=== PATIENT | female | born 1990 | race African-American/Black ===

== ENCOUNTER 2023-06-12 09:20 | Emergency (ER) | payer MEDICAID ==
[~2023-06-12] VITALS: Ht 165.1 cm; Wt 62.2 kg
[2023-06-12 09:20] VITALS: TEMP 98
[2023-06-12 10:03] LABS: BASOPHILS # (AUTO) 0.1 X10'3 (0-0.2); BASOPHILS % (AUTO) 0.5 % (0-1); EOSINOPHILS # (AUTO) 0.1 X10'3 (0-0.9); EOSINOPHILS % (AUTO) 0.6 % (0-6); HEMATOCRIT 35.2 % (35.0-45.0); LYMPHOCYTES # (AUTO) 0.8 X10'3 (1.1-4.8); LYMPHOCYTES % (AUTO) 7.4 % (21-51); MEAN CORPUSCULAR HGB CONC 31.2 g/dL (33.0-36.5); MEAN CORPUSCULAR VOLUME 80.1 FL (78-98); MEAN PLATELET VOLUME 7.7 FL (7.4-10.4); MONOCYTES # (AUTO) 1.3 X10'3 (0-0.9); MONOCYTES % (AUTO) 11.6 % (2-12); NEUTROPHILS # (AUTO) 8.7 X10'3 (1.8-7.7); NEUTROPHILS % (AUTO) 79.9 % (42-75); PLATELET COUNT 368 X10'3 (140-440); RED BLOOD COUNT 4.39 X10'6 (4.20-5.60); RED CELL DISTRIBUTION WIDTH 20.1 % (11.5-14.5); WHITE BLOOD COUNT 10.9 X10'3 (4.5-11.0)
[2023-06-12 10:05] LABS: BILIRUBIN,URINE NEGATIVE (Neg); CLARITY,URINE SLIGHTLY CLOUDY (Clear); COLOR,URINE YELLOW (Yellow); GLUCOSE, URINE NEGATIVE (Neg); KETONES,URINE NEGATIVE (Neg); LEUKOCYTE ESTERASE ,URINE NEGATIVE (Neg); NITRITES, URINE NEGATIVE (Neg); OCCULT BLOOD,URINE TRACE-INTACT (Neg); PH,URINE 5.5 (4.8-8.0); PROTEIN,URINE NEGATIVE (Neg); UROBILINOGEN,URINE 0.2 E.U/dL (0.2-1.0)
[2023-06-12 10:06] LABS: UA COLLECTION TYPE CLN CATCH MIDSTREAM; URINE HCG NEGATIVE (NEG)
[2023-06-12 10:11] LABS: MUCUS STRANDS MANY /LPF (Neg); SQUAMOUS EPITHELIAL CELL,UR MANY /LPF (FEW)
[2023-06-12 10:12] LABS: AMORPHOUS URATES 1+; BACTERIA,URINE FEW /HPF (Neg); RBC,URINE 0-2 /HPF (0-2); WBC,URINE 0-4 /HPF (0-4)
[2023-06-12 10:30] LABS: ALANINE AMINOTRANSFERASE 12 U/L (12-78); ALBUMIN/GLOBULIN RATIO 0.6 (1.1-1.5); ALKALINE PHOSPHATASE 81 IU/L (46-116); ANION GAP 7 (8-16); ASPARTATE AMINO TRANSFERASE 17 U/L (10-37); BILIRUBIN,TOTAL 0.2 MG/DL (0.1-1.0); BLOOD UREA NITROGEN 6 MG/DL (7-18); CALCIUM 8.7 MG/DL (8.5-10.1); CHLORIDE 103 MMOL/L (99-107); CREATININE 0.75 MG/DL (0.40-0.90); GLUCOSE 85 MG/DL (70-104); POTASSIUM 3.9 MMOL/L (3.5-5.1); SODIUM 135 MMOL/L (135-145); TOTAL CARBON DIOXIDE 24.6 MMOL/L (24-32); TOTAL PROTEIN 7.9 G/DL (6.4-8.2); eCRCL 96 ML/MIN; eGFR 89 ML/MIN
[2023-06-12 10:32] LABS: LIPASE 11 U/L (16-77)
[2023-06-12 10:40] LABS: ANISOCYTOSIS 3+; BILIRUBIN,DIRECT 0.1 MG/DL (0-0.3); C-REACTIVE PROTEIN 2.91 MG/DL (0.0-0.5); HYPOCHROMASIA 1+; PLATELET ESTIMATE NORMAL; POLYCHROMASIA 1+
[2023-06-12 10:41] LABS: STOMATOCYTES FEW
[2023-06-12] MEDS: famotidine 20mg tablet PO ONE (11:00)
[2023-06-12] MEDS: mag hydrox/Alum hydrox/simeth 30ml oral suspension PO ONE (11:01)
[2023-06-12] MEDS: LIDOcaine Viscous 15ml cup MM PRN (11:02)
[2023-06-12 11:09] VITALS: BP 129/50; PULSE 95; RESP 16; O2SAT 94
[2023-06-12] MEDS ORDERED: ONDA4TAB12 PO (11:17)
[2023-06-12] MEDS ORDERED: PANT-47 PO (11:17)
[2023-06-12] MEDS ORDERED: DOCU-148 PO (11:17)
[2023-06-12 13:22] LABS: OCCULT BLOOD STOOL NEGATIVE (Neg)
== END 2023-06-12 11:45 | disposition home or self-care (01) ==
LOC: ER 09:21
DX: K29.00 Acute gastritis without bleeding (principal); K60.2 Anal fissure, unspecified; R10.84 Generalized abdominal pain; Z88.5 Allergy status to narcotic agent; Z79.899 Other long term (current) drug therapy
CPT/HCPCS: 80048; 80076; 81001; 81025; 82272; 83605; 83690; 84145; 85008; 85025; 86140; 99284

== ENCOUNTER 2023-08-26 08:31 | Emergency (ER) | payer MEDICAID ==
[~2023-08-26] VITALS: Ht 165.1 cm; Wt 67.0 kg
[~2023-08-26 08:31] MED LIST: DOCU-148 PO; IBUP-1984 PO; ONDA4TAB12 PO; PANT-47 PO
[2023-08-26 08:48] VITALS: BP 131/80; PULSE 99; RESP 18; TEMP 97.8; O2SAT 98
== END 2023-08-26 13:03 | disposition left against medical advice (07) ==
LOC: ER 08:32
DX: M54.2 Cervicalgia (principal); Z53.21 Procedure and treatment not carried out due to patient leaving prior to being seen by health care provider

== ENCOUNTER 2023-08-29 15:51 | Emergency (ER) | payer MEDICAID ==
[~2023-08-29] VITALS: Ht 165.1 cm; Wt 63.6 kg
[2023-08-29 16:12] VITALS: BP 158/103; PULSE 91; TEMP 98; O2SAT 100
[2023-08-29] MEDS ORDERED: LIDOcaine 5% patch TP SCH (17:20)
[2023-08-29] MEDS ORDERED: TIZA4CAP PO (17:22)
[2023-08-29] MEDS ORDERED: LIDO700A47 TOP (17:22)
[2023-08-29] MEDS ORDERED: NAPR-56 PO (17:22)
[2023-08-29 17:41] VITALS: RESP 17
[2023-08-29] MEDS: ketorolac trometh. 30mg/ml inj. IM ONE (17:41)
[2023-08-29] MEDS: diazepam 5mg tablet PO ONE (17:43)
[2023-08-29] MEDS: predniSONE 20 mg tablet PO ONE (17:43)
[2023-08-29] MEDS: LIDOcaine 5% patch TP ONE (17:49)
== END 2023-08-29 17:56 | disposition home or self-care (01) ==
LOC: ER 15:52
DX: M54.2 Cervicalgia (principal); M25.512 Pain in left shoulder; Z88.5 Allergy status to narcotic agent; Z79.899 Other long term (current) drug therapy; Z79.1 Long term (current) use of non-steroidal anti-inflammatories (NSAID)
CPT/HCPCS: 96372; 99284; J1885; J7512

== ENCOUNTER 2024-10-17 17:23 | Emergency (ER) | payer MEDICAID ==
[~2024-10-17] VITALS: Ht 165.1 cm; Wt 75.0 kg
[~2024-10-17 17:23] MED LIST changes: -IBUP-1984 PO; +LIDO700A47 TOP; +ONDA-243 PO; -ONDA4TAB12 PO; +TIZA4CAP PO
[2024-10-17] MEDS ORDERED: DEXAMETHASONE 6 MG TABLET PO SCH (19:35)
[2024-10-17] MEDS: DEXAMETHASONE 6 MG TABLET PO ONE (20:06)
[2024-10-17] MEDS: ketorolac trometh 30MG/ML vial 30 MG/ML VIAL IM ONE (20:06)
[2024-10-17] MEDS ORDERED: AMOX-101 PO (20:37)
--- NOTE | 2024-10-17 20:37 | Physician Documentation ---
History of Present Illness ~ Chief Complaint: Back Pain Stated Complaint: BACK PAIN Time Seen by MD: 19:24 Primary Medical Doctor: [facility] HPI 34 year old female reports L buttock pain radiating down the back of her left leg, as well as L upper molar pain. Believes she has dental abscess. Denies injury, fever, N/V/D, cough, shortness of breath, neurologic deficits. Medication Reconciliation Allergies: Coded Allergies: codeine (Unverified Allergy, Unknown, 08/26/23) Scheduled Docusate Sodium (Colace), 1 CAP PO Q12H Lidocaine (Lidocaine), 1 PATCH TOP DAILY Pantoprazole Sodium (PROTONIX tablet), 1 TAB PO DAILY Tizanidine Hcl (Zanaflex), 1 CAP PO Q8H Scheduled PRN ONDANSETRON ODT 4mg tablet (Ondansetron Odt), 1 TAB PO Q6H PRN PRN for nausea/vomiting Past Medical History Past Medical History: No Pertinent History Past Surgical History: no surgical history Alcohol Use: Sober Drug Use: other Lives In: Homeless Past Social History: daily nicotine user Review of Systems All Other Systems at this time: Reviewed and Negative Physical Exam Physical Exam Vital Signs: RN Vital Signs have been reviewed: Yes, Temperature: 97.9, Source: Temporal, Heart Rate: 82, Respiratory Rate: 16, BP: 119/72, Pulse Oximetry: 100, Weight: 75.000 Oxygen Flow Rate: 0 Physical Exam HEENT: PERRL, moist oral mucosa, EOMI; poor dentition Pulmonary: No respiratory distress MSK: no deformity Skin: w/d/i, no rash Neuro: alert, nonfocal Psych: normal affect Progress Results/Orders Results/Orders Completed Orders - MARY LEE MD Ketorolac Trometh 30mg/Ml Vial (Toradol (10/17/24 19:35) Dexamethasone 6mg Tablet (Dexamethasone (10/17/24 19:35) Dexamethasone 6mg Tablet (Dexamethasone (10/17/24 19:35) Amoxicillin Capsule (Trimox Capsule) (10/17/24 19:50) Medications Received in ER Medications (Trade) Dose Ordered Sig/Sravani Route PRN Reason Start Time Stop Time Status Last Admin Dose Admin (Toradol inj. 30mg/ml) 30 mg ONCE ONCE IM 10/17/24 19:35 10/17/24 19:36 DC 10/17/24 20:06 30 MG (Dexamethasone 6mg tablet) 6 mg ONCE ONCE PO 10/17/24 19:35 10/17/24 19:36 DC 10/17/24 20:06 6 MG (Trimox capsule) 500 mg ONCE ONCE PO 10/17/24 19:50 10/17/24 19:51 DC 10/17/24 20:05 500 MG Vital Signs 10/17/24 10/17/24 17:31 20:06 Temp 97.9 Pulse 82 Resp 16 16 B/P (MAP) 119/72 Pulse Ox 100 O2 Flow Rate 0 Medical Decision Making Findings 34 year old female with dental abscess and what appears to be sciatic nerve pain. Provided pain meds, discharged with antibiotics for dental abscess. Differential Diagnosis Ddx = lumbar radiculopathy, sciatic nerve pain, dental caries, dental abscess Departure Disposition: HOME / SELF CARE / HOMELESS Impression: Primary Impression: Sciatica Additional Impression: Abscess, dental Condition: Stable Discharge Instructions: Sciatica Referrals: NO PRIMARY CARE PROVIDER (PCP) Prescriptions Amoxicillin Trihydrate (Amoxicillin) 500 Mg Capsule 1 CAP PO BID, #20 CAP Prov: MARY LEE MD 10/17/24 Education Educated: Patient Educated regarding: diagnosis, treatment, prognosis, need for follow up Signature Scribe Signature: . Attestation: . MARY LEE MD Oct 17, 2024 20:37
[2024-10-17 20:53] VITALS: BP 116/54; PULSE 56; RESP 12; TEMP 97.9; O2SAT 99
== END 2024-10-17 20:52 | disposition home or self-care (01) ==
LOC: ER 17:24
DX: M54.32 Sciatica, left side (principal); K04.7 Periapical abscess without sinus; Z88.5 Allergy status to narcotic agent
CPT/HCPCS: 96372; 99283; J1885; J8540